=== PATIENT | female | born 1955 | race Hispanic/Latino ===

== ENCOUNTER → 2020-05-10 | Outpatient (CLI) | payer MEDICARE ==
[~2020-05-10] MED LIST: ATEN1TAB47 PO; CHOL500045 PO; LORA10TA7 PO; MECL-160 PO; TRAM50TA4 PO
[2020-05-10 13:04] LABS: BASOPHILS % (AUTO) 0.6 % (0.0-5.0); EOSINOPHILS % (AUTO) 4.5 % (0.0-8.0); HEMATOCRIT 35.7 % (36-48); LYMPHOCYTES % (AUTO) 31.7 % (21.0-51.0); MEAN CORPUSCULAR HEMOGLOBIN 30.1 pg (27.0-33.0); MEAN CORPUSCULAR HGB CONC 32.5 g/dL (32.0-36.0); MEAN CORPUSCULAR VOLUME 92.7 fL (79-99); MONOCYTES % (AUTO) 8.6 % (3.0-13.0); NEUTROPHILS % (AUTO) 54.5 % (40.0-77.0); PLATELET COUNT (AUTO) 238 K/uL (130-400); RED BLOOD CELL COUNT(AUTO) 3.85 MIL/uL (4.00-5.50); RED CELL DISTRIBUTION WIDTH 13.2 % (11.0-15.5); WHITE BLOOD COUNT (AUTO) 6.9 K/uL (4.8-10.8)
[2020-05-10 13:11] LABS: CREATININE 1.7 mg/dL (0.5-1.5); POTASSIUM 3.5 mmol/L (3.5-5.1)
[2020-05-10 13:15] LABS: INR 0.92 (0.85-1.15); PARTIAL THROMBOPLASTIN TIME 28.5 SEC (26.3-35.5)
== END | disposition home or self-care (01) ==
LOC: LAB 05:00 → EDSTATUS 05-18 15:03
PROVIDERS: ATTEND Orthopaedic Surgery
DX: Z03.818 Encounter for observation for suspected exposure to other biological agents ruled out (principal); M17.0 Bilateral primary osteoarthritis of knee
CPT/HCPCS: 36415; 80048; 85025; 85610; 85730; A6260; U0003

== ENCOUNTER 2020-09-06 21:22 | Emergency (ER) | payer MEDICARE ==
[2020-09-06] MEDS ORDERED: ACETAMINOPHEN EXTRA STRENGTH 500 MG TABLET ONE (21:34)
[2020-09-06 22:20] LABS: APPEARANCE,URINE Clear (CLEAR); BILIRUBIN,URINE Negative (NEGATIVE); COLOR,URINE Yellow (YELLOW); GLUCOSE, URINE (UA) Negative (NEGATIVE); KETONES,URINE Negative (NEGATIVE); LEUKOCYTE ESTERASE ,URINE Negative (NEGATIVE); NITRATE,URINE Negative (NEGATIVE); OCCULT BLOOD,URINE Negative (NEGATIVE); PROTEIN,URINE POS 1+ mg/dL (NEGATIVE); UROBILINOGEN,URINE 0.2 mg/dL (0.2-1.0)
[2020-09-06] MEDS ORDERED: ONDANSETRON HCL 4 MG/2 ML VIAL ONE (22:20)
[2020-09-06 22:35] LABS: BASOPHILS % (AUTO) 0.2 % (0.0-5.0); EOSINOPHILS % (AUTO) 0.2 % (0.0-8.0); HEMATOCRIT 38.5 % (36-48); LYMPHOCYTES % (AUTO) 30.7 % (21.0-51.0); MEAN CORPUSCULAR HEMOGLOBIN 28.7 pg (27.0-33.0); MEAN CORPUSCULAR VOLUME 86.9 fL (79-99); MONOCYTES % (AUTO) 13.7 % (3.0-13.0); PLATELET COUNT (AUTO) 163 K/uL (130-400); RED BLOOD CELL COUNT(AUTO) 4.43 MIL/uL (4.00-5.50); RED CELL DISTRIBUTION WIDTH 13.1 % (11.0-15.5); WHITE BLOOD COUNT (AUTO) 4.2 K/uL (4.8-10.8)
[2020-09-06 22:41] LABS: BACTERIA,URINE Few /HPF (None Seen); HYALINE CASTS, URINE 0-1 /LPF (0-1 /LPF); RBC,URINE 0-1 /HPF (0-1); WBC,URINE 0-1 /HPF (0-1)
[2020-09-06 22:50] LABS: ALBUMIN 3.5 g/dL (3.5-5.0); BILIRUBIN,TOTAL 0.5 mg/dL (0.2-1.0); TOTAL PROTEIN, SERUM 7.6 g/dL (6.0-8.3)
[2020-09-06] MEDS ORDERED: POTASSIUM BICARB/CIT AC 25 MEQ TABLET.EFF ONE (23:26)
== END 2020-09-06 23:40 | disposition home or self-care (01) ==
LOC: EDH 21:22
DX: U07.1 COVID-19 (principal); E86.0 Dehydration; E87.6 Hypokalemia; I10 Essential (primary) hypertension; M06.9 Rheumatoid arthritis, unspecified; M79.7 Fibromyalgia; Z88.6 Allergy status to analgesic agent; Z98.51 Tubal ligation status; Z90.49 Acquired absence of other specified parts of digestive tract
CPT/HCPCS: 36415; 71045; 80053; 81001; 82550; 83690; 84484; 85025; 93005; 96374; 99285; J2405

== ENCOUNTER 2020-09-27 10:00 | Inpatient (IN) | payer MEDICARE ==
[~2020-09-27] VITALS: Ht 162.6 cm; Wt 99.8 kg
[~2020-09-27 10:00] MED LIST changes: -CHOL500045 PO; -LORA10TA7 PO; -MECL-160 PO
[2020-09-27 13:45] LABS: BASOPHILS % (AUTO) 0.5 % (0.0-5.0); EOSINOPHILS % (AUTO) 4.7 % (0.0-8.0); HEMATOCRIT 35.2 % (36-48); LYMPHOCYTES % (AUTO) 28.2 % (21.0-51.0); MEAN CORPUSCULAR HGB CONC 32.1 g/dL (32.0-36.0); MEAN CORPUSCULAR VOLUME 90.3 fL (79-99); NEUTROPHILS % (AUTO) 58.3 % (40.0-77.0); PLATELET COUNT (AUTO) 223 K/uL (130-400); RED CELL DISTRIBUTION WIDTH 14.1 % (11.0-15.5)
[2020-09-27 13:52] LABS: CREATININE 1.6 mg/dL (0.5-1.5)
[2020-09-27 13:59] LABS: INR 0.9 (0.85-1.15); PARTIAL THROMBOPLASTIN TIME 30.6 SEC (26.3-35.5); PROTHROMBIN TIME 9.8 SEC (9.6-11.6)
[2020-09-29 16:28] VITALS: BP 180/86
[2020-09-29] MEDS ORDERED: PANT40TA54 PO (16:39)
[2020-09-29] MEDS ORDERED: MONT10TA26 PO (16:39)
[2020-09-29] MEDS ORDERED: VITAMIN D2 PO (16:39)
[2020-09-29] MEDS ORDERED: NAPR-1023 PO (16:39)
[2020-09-29] MEDS ORDERED: GABA-529 PO (16:39)
[2020-09-29] MEDS ORDERED: LEFL20TA18 PO (16:39)
[2020-09-30] VITALS (27 sets, daily range): BP systolic 107–146; BP diastolic 41–74
[2020-09-30] MEDS: CEFAZOLIN SODIUM 1 GM VIAL IVP SCH ×3 (06:00→21:11)
[2020-09-30] MEDS ORDERED: [UNRECOGNIZED DRUG - OTHER] IV PRN ×5 (08:39)
[2020-09-30] MEDS ORDERED: INTRA ARTICULAR IV PRN ×5 (08:39)
[2020-09-30] MEDS ORDERED: LACTATED RINGERS 1000ML 1,000 ML IV ONE (11:57)
--- NOTE | 2020-09-30 12:02 | NUR ---
blood dr cuellar made aware patient doesn't consent for blood transfusion. no further orders given.
[2020-09-30] MEDS ORDERED: ROPIVACAINE 0.5% 5MG/ML 30ML IJ ONE (12:28)
[2020-09-30] MEDS ORDERED: ROCURONIUM 10MG/1ML SYR 10 MG/ML ML ONE (12:30)
[2020-09-30] MEDS ORDERED: PROPOFOL 10 MG/ML 20ML VIAL IV ONE (12:30)
[2020-09-30] MEDS ORDERED: SUCCINYLCHOLINE CHLORIDE 20 MG/ML 10 ML VIAL ONE (12:30)
[2020-09-30] MEDS ORDERED: LIDOCAINE PF 2% 5ML ABBOJECT ONE (12:30)
[2020-09-30] MEDS ORDERED: FENTANYL CITRATE PF 50 MCG/1 ML 2ML VIAL ONE (12:31)
[2020-09-30] MEDS ORDERED: TRANEXAMIC ACID 1000MG/10ML ONE (13:01)
[2020-09-30] MEDS ORDERED: GLYCOPYRROLATE 1 MG/5 ML SYRINGE ONE (13:48)
[2020-09-30] MEDS ORDERED: KETOROLAC TROMETHAMINE 30MG/ML ONE (14:53)
[2020-09-30] MEDS ORDERED: ONDANSETRON HCL 4 MG/2 ML VIAL ONE (14:53)
[2020-09-30] MEDS ORDERED: NEOSTIGMINE 5MG/5ML SYR IV ONE (14:53)
[2020-09-30] MEDS ORDERED: FERROUS FUMARATE 324 MG TABLET PO PRN (15:30)
[2020-09-30] MEDS ORDERED: HYDROMORPHONE HCL 2 MG TAB PO PRN (15:30)
[2020-09-30] MEDS ORDERED: KETOROLAC TROMETHAMINE 15MG/ML IV PRN (15:30)
[2020-09-30] MEDS: SODIUM CHLORIDE 0.9% 1000ML 1,000 ML IV SCH (15:30)
[2020-09-30] MEDS: ACETAMINOPHEN EXTRA STRENGTH 500 MG TABLET PO SCH ×2 (15:30→23:25)
[2020-09-30] MEDS ORDERED: IBUPROFEN 800 MG TAB PO PRN (15:30)
[2020-09-30] MEDS ORDERED: MEPERIDINE-PF 25 MG/ML SYG ONE (15:59)
[2020-09-30] MEDS ORDERED: PHARMACY COMMUNICATION MISC SCH (16:15)
[2020-09-30] MEDS: ONDANSETRON HCL 4 MG/2 ML VIAL IVP PRN (17:30)
[2020-09-30] MEDS: MORPHINE SULFATE 4 MG/1ML SYG IVP PRN (17:31)
[2020-09-30] MEDS ORDERED: CELECOXIB 200 MG CAP PO SCH (21:00)
[2020-09-30] MEDS: ASPIRIN 81 MG EC TAB PO SCH (21:10)
[2020-10-01] MEDS: SODIUM CHLORIDE 0.9% 1000ML 1,000 ML IV SCH ×2 (01:30→11:30)
[2020-10-01 03:40] LABS: HEMATOCRIT 31.5 % (36-48); MEAN CORPUSCULAR HGB CONC 31.7 g/dL (32.0-36.0); MEAN CORPUSCULAR VOLUME 91.3 fL (79-99); RED BLOOD CELL COUNT(AUTO) 3.45 MIL/uL (4.00-5.50); RED CELL DISTRIBUTION WIDTH 14.1 % (11.0-15.5); WHITE BLOOD COUNT (AUTO) 8.4 K/uL (4.8-10.8)
--- NOTE | 2020-10-01 03:40 | NUR ---
PATIENT YET TO VOID, BLADDER SCAN 202ML. PATIENT WITH C/O PRESSURE AND FEELING UNCOMFORTABLE. IN/OUT CATHETER PERFORMED WITH 250 ML URINE OUTPUT. PATIENT STATES SHE FEELS BETTER. INSTRUCTED ON DTV AGAIN. WILL CONT TO MONITOR .
[2020-10-01 03:44] VITALS: BP 133/75
[2020-10-01 04:13] LABS: CREATININE 1.5 mg/dL (0.5-1.5)
[2020-10-01] MEDS: CEFAZOLIN SODIUM 1 GM VIAL IVP SCH (04:56)
[2020-10-01] MEDS: ACETAMINOPHEN EXTRA STRENGTH 500 MG TABLET PO SCH (07:30)
[2020-10-01] MEDS: MORPHINE SULFATE 4 MG/1ML SYG IVP PRN ×2 (08:10→13:48)
[2020-10-01] MEDS ORDERED: POLYETHYLENE GLYCOL 3350 17 GM POWD.PACK PO SCH (09:00)
[2020-10-01] MEDS ORDERED: TAMSULOSIN HCL 0.4 MG CAP.ER.24H PO SCH (09:00)
[2020-10-01] MEDS: ONDANSETRON HCL 4 MG/2 ML VIAL IVP PRN ×2 (09:08→13:47)
[2020-10-01 09:45] VITALS: BP 144/80
--- NOTE | 2020-10-01 11:24 | NUR ---
DCP CM spoke to pt discussed dc plans. Pt is independent prior to surgery, lives at home with spouse and adult sons. Pt has a walker, bedside commode. Pt verbalized Dr Saeed's office set up outpatient PT w/[facility] for therapy. Denies any other equipments/services. Feels safe to go back home, still drives, spouse and sons able to assist with transportation and needs as necessary. DC plan to home once stable. CM to continue to follow up. Addendum: 10/01/20 at 1126 by IVANNA ANGEL LVN CM Amended: Links added.
[2020-10-01 12:08] VITALS: BP 141/74
[2020-10-01] MEDS: ASPIRIN 81 MG EC TAB PO SCH (15:20)
[2020-10-01 16:54] VITALS: BP 142/72
--- NOTE | 2020-10-01 18:35 | NUR ---
DISCHARGE PATIENT GIVEN DISCHARGE INSTRUCTIONS VIA TEACH BACK. 20G PIV TO JOHNNA DISCONTINUED, TIP INTACT. PATIENT TO FOLLOW UP DR. JUAN ON 10/12/20 AT 1000. JESUS DRESSING TO LEFT KNEE CHANGED, NEW DRESSING APPLIED. DRESSING TO BE REMOVED BY MD AT FOLLOW UP APPOINTMENT. PATIENT VOIDING DENIES ANY PAIN OR DISCOMFORT. PATIENT STABLE AT THIS TIME AND WHEELED TO [facility] FOR DISCHARGE BY MARY FLORES.
== END 2020-10-01 18:50 | disposition home or self-care (01) | DRG 469 ==
LOC: EDSTATUS 10:00 → DAHIP 09-30 08:59 → 3BH 09-30 16:43
PROVIDERS: ADMIT Orthopaedic Surgery; ATTEND Orthopaedic Surgery
PROC: 0SRD0JA Replacement of Left Knee Joint with Synthetic Substitute, Uncemented, Open Approach (ICD-10-PCS; principal; 2020-09-30 13:55)
PROC: 3E0T3BZ Introduction of Anesthetic Agent into Peripheral Nerves and Plexi, Percutaneous Approach (ICD-10-PCS; 2020-09-30 13:55)
DX: M17.12 Unilateral primary osteoarthritis, left knee (principal); U07.1 COVID-19; Z96.651 Presence of right artificial knee joint; I10 Essential (primary) hypertension
CPT/HCPCS: 36415; 73562; 80048; 85025; 85027; 85610; 85730; 87641; 93005; 97039; G0378; J0330; J0690; J1885; J2001; J2175; J2270; J2405; J2704; J2710; J2795; J3010; J3490; J7120; U0003

== ENCOUNTER → 2023-03-01 | Outpatient (CLI) | payer MEDICARE ==
[~2023-03-01] MED LIST changes: +GABA-529 PO; +LEFL20TA18 PO; +MONT-39 PO; +NAPR-1023 PO; +PANT40TA54 PO; +VITAMIN D2 PO
== END | disposition home or self-care (01) ==
LOC: RAH 09:23
PROVIDERS: ATTEND Internal Medicine
DX: D17.79 Benign lipomatous neoplasm of other sites (principal); I10 Essential (primary) hypertension; R22.32 Localized swelling, mass and lump, left upper limb
CPT/HCPCS: 76775; 76882

== ENCOUNTER → 2023-04-07 | Emergency (ER) | payer MEDICARE ==
[~2023-04-07] VITALS: Ht 162.6 cm; Wt 106.6 kg
[~2023-04-07] MED LIST changes: +LIDO1ADH82 TP; +LIDOCAINE 5% TOPICAL PATCH TP ONE
[2023-04-07 17:47] LABS: BASOPHILS % (AUTO) 0.3 % (0.0-5.0); EOSINOPHILS % (AUTO) 3.3 % (0.0-8.0); HEMATOCRIT 36.4 % (36-48); MEAN CORPUSCULAR HEMOGLOBIN 30.6 pg (27.0-33.0); MEAN CORPUSCULAR HGB CONC 32.4 g/dL (32.0-36.0); MEAN CORPUSCULAR VOLUME 94.5 fL (79-99); MONOCYTES % (AUTO) 6.6 % (3.0-13.0); NEUTROPHILS % (AUTO) 65.7 % (40.0-77.0); PLATELET COUNT (AUTO) 229 K/uL (130-400); RED BLOOD CELL COUNT(AUTO) 3.85 MIL/uL (4.00-5.50); WHITE BLOOD COUNT (AUTO) 7.2 K/uL (4.8-10.8)
[2023-04-07 17:57] LABS: CREATININE 1.6 mg/dL (0.5-1.5); POTASSIUM 4.1 mmol/L (3.5-5.1)
[2023-04-07 18:05] LABS: ALBUMIN 3.6 g/dL (3.5-5.0); MAGNESIUM 1.9 mg/dL (1.80-2.40); TOTAL PROTEIN, SERUM 7.3 g/dL (6.0-8.3)
[2023-04-07 18:10] VITALS: BP 132/74
== END | disposition home or self-care (01) ==
LOC: EDH 16:02
DX: M79.602 Pain in left arm (principal); I10 Essential (primary) hypertension; E78.00 Pure hypercholesterolemia, unspecified; Z88.8 Allergy status to other drugs, medicaments and biological substances; Z79.899 Other long term (current) drug therapy; Z90.49 Acquired absence of other specified parts of digestive tract
CPT/HCPCS: 36415; 80053; 83735; 84484; 85025; 93005